=== PATIENT | female | born 1990 | race Two or more races ===

== ENCOUNTER 2018-08-30 08:56 | Outpatient (CLI) | payer OTHER | END 2018-08-30 16:27 | disposition home or self-care (01) | LOC: SONOGRAMA 08:56 | DX: N63.21 Unspecified lump in the left breast, upper outer quadrant (principal) ==

== ENCOUNTER 2021-08-25 17:43 | Emergency (ER) | payer OTHER ==
[~2021-08-25] VITALS: Ht 177.8 cm; Wt 87.5 kg
[2021-08-25] MEDS ORDERED: PEPCID AC20 MG PO (23:09)
[2021-08-25] MEDS ORDERED: DICLOFENAC SODI75 MG PO (23:09)
[2021-08-25] MEDS ORDERED: DUI500 PO (23:09)
== END 2021-08-25 23:39 | disposition home or self-care (01) ==
LOC: ER 17:43
DX: K11.20 Sialoadenitis, unspecified (principal)
CPT/HCPCS: 70491; Q9958